=== PATIENT | male | born 1980 | race Caucasian/White ===

== ENCOUNTER → 2019-04-16 14:00 | Outpatient (CLI) | payer OTHER, SELFPAY ==
--- NOTE | 2019-04-16 14:15 | RAD_ITS ---
STUDY: X-RAY - LUMBAR SPINE REASON FOR EXAM: Male, 39 years old. Right-sided low back pain. TECHNIQUE: 3 view(s) of the lumbar spine were obtained. COMPARISON: None FINDINGS: Normal lumbar lordosis. There is no substantial scoliosis. There is a normal alignment of the vertebrae. Normal vertebral bodies and endplates. Minimal intervertebral disc space narrowing with no significant osteophyte formation at L3-4. The soft tissue structures are unremarkable. RAD/Lumbar Spine 2 or 3 Views IMPRESSION: Minimal lumbar spondylosis. No acute finding. Electronically Signed: Quincy Hernandes MD at 14:25 EST , Service support ,
--- NOTE | 2019-04-16 14:20 | RAD_ITS ---
STUDY: X-RAY - SACROILIAC JOINTS REASON FOR EXAM: Male, 39 years old. Right-sided lower back pain. TECHNIQUE: 4 view(s) of the sacroiliac joints were obtained. COMPARISON: None. FINDINGS: Normal bilateral sacroiliac joints. Normal visualized sacral ala and sacrum. Normal visualized iliac bones. Normal visualized soft tissue structures. RAD/S-I Jts 3 or More Views IMPRESSION: Normal x-ray examination of the bilateral sacroiliac joints. Electronically Signed: Quincy Hernandes MD at 14:34 EST , Service support ,
== END ==
PROVIDERS: PCP Internal Medicine; Referring Provider Internal Medicine; Visit Provider Internal Medicine
DX: M54.5 Low back pain (principal); G89.29 Other chronic pain
CPT/HCPCS: 72100; 72202

== ENCOUNTER → 2019-06-13 13:18 | Outpatient (CLI) | payer OTHER, SELFPAY ==
--- NOTE | 2019-06-13 13:32 | MRI_ITS ---
STUDY: MRI LUMBAR SPINE WITHOUT CONTRAST REASON FOR EXAM: Male, 39 years old. radiculopathy -- pain low back and into bilat hips, R and gt; L, sacral pain x several months TECHNIQUE: Standardized fat and water weighted pulse sequences were obtained in the sagittal and axial planes. COMPARISON: X-ray 04/16/2019 FINDINGS: T12-L1: Normal endplates. Normal disc height, hydration and morphology. Normal bilateral facet joints. Normal central canal and bilateral lateral recesses. Normal bilateral intervertebral neural foramina. There is straightening of the normal lumbar lordosis. There is no substantial scoliosis. Normal conus medullaris that terminates at the L1/L2. L1-2: Normal endplates. Normal disc height, hydration and morphology. Normal bilateral facet joints. Normal central canal and bilateral lateral recesses. Normal bilateral intervertebral neural foramina. L2-3: Normal endplates. Normal disc height, hydration and morphology. Normal bilateral facet joints. Normal central canal and bilateral lateral recesses. Normal bilateral intervertebral neural foramina. L3-4: Disc desiccation but no disc protrusion, spinal stenosis, or neural foraminal stenosis. L4-5: Normal endplates. Normal disc height, hydration and morphology. Normal bilateral facet joints. Normal central canal and bilateral lateral recesses. Normal bilateral intervertebral neural foramina. L5-S1: Mild bilateral facet hypertrophy with fluid in the facet joints consistent with instability. 5 mm retrolisthesis of L5 on S1 with a mild broad disc protrusion produces moderate spinal stenosis with moderate bilateral lateral recess stenosis with abutment of the S1 nerve roots bilaterally and mild bilateral neural foraminal stenosis. Normal visualized sacral ala. Left-sided inferior vena cava. MRI/Spine Lumbar (Routine) IMPRESSION: Focal degenerative disc disease at L5/S1 with 5 mm retrolisthesis of L5 on S1 with a mild broad disc protrusion which produces moderate spinal stenosis and moderate bilateral lateral recess stenosis with abutment of the S1 nerve roots bilaterally. Electronically Signed: Aleksander Amaya MD at 14:52 EDT Tel , Service support ,
== END ==
PROVIDERS: PCP Internal Medicine
DX: M54.16 Radiculopathy, lumbar region (principal)
CPT/HCPCS: 72148